=== PATIENT | male | born 1995 | race African-American/Black ===

== ENCOUNTER → 2020-02-19 | Day surgery (SDC) | payer BC ==
[~2020-02-19] MED LIST: BUPIVACAINE HCL 0.5% INJ 30 ML VIAL INJ ONE; CEFTRIAXONE SOD 1 GM/NS 50 ML 50 ML IV ONE; DEXAMETHASONE SOD PHOS INJ 4 MG/ML VIAL ONE; FENTANYL CITRATE/PF 100MCG/2 ML INJ ONE; FINASTERIDE5 MG PO; KETOROLAC TROMETHAMINE 30 MG/ML VIAL ONE; LIDOCAINE HCL 2% LOCAL INJ 5 ML SDV VIAL INJ ONE; MIDAZOLAM HCL 2 MG/2 ML VIAL ONE; ONDANSETRON HCL INJ 2MG/ML 2ML 2 MG/ML VIAL ONE; PROPOFOL IV EMULSION 10 MG/ML 20 ML VIAL ONE; SEVOFLURANE INHAL SOLN 250 ML PEN BTL ONE
[2020-02-19 12:00] VITALS: BP 138/81
--- NOTE | 2020-02-26 07:57 | Operative Report ---
DATE OF PROCEDURE: 02/19/2020 SURGEON: Demario Santana MD PREOPERATIVE DIAGNOSIS: Right hydrocele. POSTOPERATIVE DIAGNOSIS: Right hydrocele. OPERATIVE PROCEDURE PERFORMED: Right hydrocelectomy. ANESTHESIA: General anesthesia. ESTIMATED BLOOD LOSS: Minimal. INDICATIONS: Mr. Bhandari is a 24-year-old gentleman who recently noted onset of the swelling on his right testicle. This was from an ultrasound to be a hydrocele, but otherwise normal testicle and epididymis. Given that this is causing considerable discomfort. He now presents for definitive surgical management. PROCEDURE IN DETAIL: The patient was brought to the operating room, placed in supine position. After initiation of general anesthesia, was placed in supine position and prepped and draped in the usual sterile fashion. A horizontal incision was made over the right hemiscrotum and dissection was carried out through the layers of the scrotum. The tunica vaginalis was opened and approximately 250 mL of straw-colored fluid was removed. The cut edges of the tunica vaginalis were fulgurated with the electrocautery device and oversewn using a running chromic suture. The appendix testis and appendix epididymis were both removed without difficulty. The testicle was returned to its normal anatomical position in the scrotum and a quarter-inch Connie drain was placed, so as to drain at the inferior portion of the scrotum. The scrotum was then closed in layers. The skin being closed using running baseball stitch. The wound was then cleaned and dried and covered with Telfa, sterile fluffs and placed in a scrotal support. Anesthesia was reversed and the patient was transferred to a bed and taken to the postanesthesia care unit in good condition. Of note, the needle and instrument count were correct at the conclusion of the case. Demario Santana MD HLW/MODL /[id number]
== END | disposition home or self-care (01) ==
LOC: OR 08:23 → EDBD 10:30
PROVIDERS: ATTEND Urology
DX: N43.3 Hydrocele, unspecified (principal); Z01.812 Encounter for preprocedural laboratory examination; Z20.828 Contact with and (suspected) exposure to other viral communicable diseases
CPT/HCPCS: 55040; J0696; J1100; J1885; J2001; J2250; J2405; J2704; J3010; U0002